=== PATIENT | male | born 1945 | race Caucasian/White ===

== ENCOUNTER 2019-05-29 09:21 | Emergency (ER) | payer MEDICARE ==
[2019-05-29 10:21] LABS: HEMATOCRIT 47.1 % (42.0-52.0); HEMOGLOBIN 15.8 gm/dl (14.0-18.0); MEAN CELL VOLUME 89.4 fl (81-97); MEAN CORPUSCULAR HGB CONC 33.5 g/dl (32-36); MEAN PLATELET VOLUME 10.3 fl (7.4-10.4); PLATELET COUNT 207 K/uL (130-400); RED BLOOD COUNT 5.27 M/uL (4.40-5.70); RED CELL DISTRIBUTION WIDTH 13.9 % (11.5-14.5); WHITE BLOOD COUNT W/O DIFF 7.3 K/uL (4.2-12.2)
--- NOTE | 2019-05-29 10:22 | RADIOLOGY REPORT ---
EXAMINATION: Cervical Spine Complete, 4 or 5 Views EXAM DATE: 05/29/2019 10:15 AM TECHNIQUE: AP, lateral, odontoid, bilateral oblique views. INDICATION: neck pain COMPARISON: None ENCOUNTER: Initial FINDINGS: Dextroconvex curvature in the mid cervical spine which measures approximately 8 degrees. The dens is intact. There is bony fusion of the C6 and C7 vertebra marked discogenic degenerative changes at C5-C 6. Minimal anterolisthesis at C7-T1. On the right there is neural foraminal narrowing at the C3-C4 le rik and C5-C6 level. On the left there is neural foraminal narrowing at the C3-T1 level greatest at C 5-C6. No thickening of the prevertebral soft tissues. IMPRESSION: Marked discogenic degenerative change at C5-C6 with neural foraminal narrowing bilaterally. Dictated by: Alley Montaño MD on 05/29/2019 10:16 AM. .
[2019-05-29 10:35] LABS: BLOOD UREA NITROGEN 13 mg/dL (8-23); CREATININE 1.2 mg/dL (0.7-1.2); EST GLOMERULAR FILTRATION RATE > 60 mL/min
[2019-05-29 10:38] LABS: GLUCOSE,RANDOM 182 mg/dL (74-109)
[2019-05-29] MEDS: KETOROLAC 30 MG/ML VIAL IM ONE (10:42)
--- NOTE | 2019-05-29 11:28 | Emergency Department Record ---
History of Present Illness - General Chief Complaint: Neck Injury/Pain Stated Complaint: STIFF NECK Time Seen by Provider: 05/29/19 09:36 Source: Patient Mode of Arrival: Ambulatory Limitations: No limitations - History of Present Illness Initial Comments: pt woke up with a sore neck a few days ago. it hurts when he turns it right. it feels better when he holds it still Complaint: Neck pain Onset/Timin -: Days(s) Radiation: Head Severity scale (1-10): 5 Quality: Aching Consistency: Constant Improves With: None Worsens With: Movement of neck - Related Data Home Medications Medication Instructions Recorded Confirmed Last Taken Aspirin [Aspir-Low] 81 mg PO DAILY 05/29/19 05/29/19 05/29/19 Clopidogrel Bisulfate [Plavix] 75 mg PO DAILY 05/29/19 05/29/19 05/29/19 Glipizide 5 mg PO BID 05/29/19 05/29/19 05/29/19 Losartan Potassium [Cozaar] 100 mg PO DAILY 05/29/19 05/29/19 05/29/19 Metformin ER HCl [Glucophage Xr] 500 mg PO DAILY 05/29/19 05/29/19 05/29/19 Metoprolol Tartrate [Lopressor] 25 mg PO Q12H 05/29/19 05/29/19 05/29/19 Omeprazole 20 mg PO DAILY 05/29/19 05/29/19 05/29/19 Rosuvastatin Calcium [Crestor] 20 mg PO QHS 05/29/19 05/29/19 05/29/19 Previous Rx's Medication Instructions Recorded Cyclobenzaprine HCl [Flexeril] 5 mg PO TID #10 tab 05/29/19 Allergies Allergy/AdvReac Type Severity Reaction Status Date / Time oxycodone AdvReac NAUSEA AND Verified 05/29/19 09:35 VOMITING Travel Screening - Travel/Exposure Within Last 30 Days Have you traveled within the last 30 days?: No - Travel/Exposure Within Last Year Have you traveled outside the [place] in the last year?: No - Additonal Travel Details Have you been exposed to anyone with a communicable illness?: No Review of Systems Reviewed: No additional complaints except as noted below Constitutional: Reports: As per HPI. Denies: Chills, Fever, Malaise, Night sweats, Weakness, Weight change Eyes: Reports: As per HPI. Denies: Eye discharge, Eye pain, Photophobia, Vision change ENT: Reports: As per HPI. Denies: Congestion, Dental pain, Ear pain, Epistaxis, Hearing loss, Throat pain Respiratory: Reports: As per HPI. Denies: Cough, Dyspnea, Hemoptysis, Stridor, Wheezes Cardiovascular: Reports: As per HPI. Denies: Arrhythmia, Chest pain, Dyspnea on exertion, Edema, Murmurs, Orthopnea, Palpitations, Paroxysmal nocturnal dyspnea, Rheumatic Fever, Syncope Endocrine: Reports: As per HPI. Denies: Fatigue, Heat or cold intolerance, Polydipsia, Polyuria Gastrointestinal: Reports: As per HPI. Denies: Abdominal pain, Constipation, Diarrhea, Hematemesis, Hematochezia, Melena, Nausea, Vomiting Genitourinary: Reports: As per HPI. Denies: Dysuria, Frequency, Hematuria, Incontinence, Retention, Testicular pain, Testicular mass, Urgency Musculoskeletal: Reports: As per HPI. Denies: Arthralgia, Back pain, Gout, Joint swelling, Myalgia, Neck pain Skin: Reports: As per HPI. Denies: Bruising, Change in color, Change in hair/nails, Lesions, Pruritus, Rash Neurological: Reports: As per HPI. Denies: Abnormal gait, Confusion, Headache, Numbness, Paresthesias, Seizure, Tingling, Tremors, Vertigo, Weakness Psychiatric: Reports: As per HPI. Denies: Anxiety, Auditory hallucinations, Depression, Homicidal thoughts, Suicidal thoughts, Visual hallucinations Hematological/Lymphatic: Reports: As per HPI. Denies: Anemia, Blood Clots, Easy bleeding, Easy bruising, Swollen glands Past Medical History - SOCIAL HISTORY Smoking Status: Never smoker Alcohol Use: None Drug Use: None - RESPIRATORY Hx Respiratory Disorders: No - CARDIOVASCULAR Hx Cardio Disorders: Yes Hx Cardiac Cath: Yes Hx Hypertension: Yes - NEURO Hx Neuro Disorders: No - GI Hx GI Disorders: No - Hx Genitourinary Disorders: Yes Hx Prostate Problems: Yes (cancer and removed) - ENDOCRINE Hx Endocrine Disorders: Yes Hx Diabetes: Yes Hx Thyroid Disease: No - MUSCULOSKELETAL Hx Musculoskeletal Disorders: Yes Hx Back Injury: Yes (herniated disk) - PSYCH Hx Psych Problems: No - HEMATOLOGY/ONCOLOGY Hx Hematology/Oncology Disorders: No Family Medical History Any Significant Family History?: No Physical Exam - General General Appearance: Alert, Oriented x3, Cooperative, No acute distress - Head Head exam: Normal inspection - Eye Eye exam: Normal appearance, PERRL, EOMI Pupils: Normal accommodation - ENT ENT exam: Normal exam, Mucous membranes moist, Normal external ear exam, Normal orophraynx Ear exam: Normal external inspection. negative: External canal tenderness Nasal Exam: Normal inspection. negative: Discharge, Sinus tenderness Mouth exam: Normal external inspection, Tongue normal Teeth exam: Normal inspection. negative: Dental caries Throat exam: Normal inspection. negative: Tonsillar erythema, Tonsillar exudate - Neck Neck exam: Tenderness, Other (lrom in r side , tenderness in musculature). negative: Full ROM - Respiratory Respiratory exam: Normal lung sounds bilaterally. negative: Respiratory distress - Cardiovascular Cardiovascular Exam: Regular rate, Normal rhythm, Normal heart sounds - GI/Abdominal GI/Abdominal exam: Soft, Normal bowel sounds. negative: Tenderness - Rectal Rectal exam: Deferred - exam: Deferred - Extremities Extremities exam: Normal inspection, Full ROM, Normal capillary refill. negative: Tenderness - Back Back exam: Reports: Normal inspection, Full ROM. Denies: Muscle spasm, Rash noted, Tenderness - Neurological Neurological exam: Alert, CN II-XII intact, Normal gait, Oriented X3 - Psychiatric Psychiatric exam: Normal affect, Normal mood - Skin Skin exam: Dry, Intact, Normal color, Warm Course Vital Signs 05/29/19 09:22 Temperature 97.5 F L Pulse Rate 60 Respiratory 16 Rate Blood Pressure 167/92 Pulse Ox 96 - Reevaluation(s) Reevaluation #1: 05/29/19 11:28 pt feels better Reevaluation #2: 05/29/19 11:29 cxr shows significant neural foramina narrowing Medical Decision Making - Lab Data Result diagrams: 05/29/19 09:53 05/29/19 09:53 Lab Results 05/29/19 05/29/19 Range/Units 09:53 09:53 WBC 7.3 (4.2-12.2) K/uL RBC 5.27 (4.40-5.70) M/uL Hgb 15.8 (14.0-18.0) gm/dl Hct 47.1 (42.0-52.0) % MCV 89.4 (81-97) fl MCH 30.0 (27-33) pg MCHC 33.5 (32-36) g/dl RDW 13.9 (11.5-14.5) % Plt Count 207 (130-400) K/uL MPV 10.3 (7.4-10.4) fl Neutrophils % 61.0 (47-80) % Eosinophils % Not Reportable Basophils % Not Reportable Absolute Neutrophils Not Reportable Lymphocytes 26.0 (16-45) % Monocytes 5.0 (0-9) % Eosinophil Count 8.0 H (0-6) % Sodium 135 L (136-145) mmol/L Potassium 4.3 (3.4-4.5) mmol/L Chloride 100 (98-107) mmol/L Carbon Dioxide 21.0 L (22-29) mmol/L Anion Gap 14.0 (7-16) BUN 13 (8-23) mg/dL Creatinine 1.2 (0.7-1.2) mg/dL Estimated GFR > 60 mL/min Random Glucose 182 H (74-109) mg/dL Calcium 9.2 (8.8-10.2) mg/dL Disposition Disposition: Discharge Clinical Impression: Torticollis, acute Disposition: Home, Self-Care Condition: (1) Good Instructions: Spasmodic Torticollis (ED) Additional Instructions: follow up with family doctor. return sooner if worse. apply moist heat. have mri if pain persists Prescriptions: Cyclobenzaprine HCl [Flexeril] 5 mg PO TID #10 tab Quality - Quality Measures Quality Measures: N/A - Blood Pressure Screening Does Patient Have Any of the Following: Active Dx of HTN Blood Pressure Classification: Hypertensive Reading Systolic Measurement: 167 Diastolic Measurement: 92 Screening for High Blood Pressure: Patient Exclusion, Hx of HTN [G9744]
== END 2019-05-29 11:41 | disposition home or self-care (01) ==
LOC: ER 09:21
DX: M43.6 Torticollis (principal); M54.2 Cervicalgia; I10 Essential (primary) hypertension
CPT/HCPCS: 72050; 80048; 85027; 96372; 99284; J1885